=== PATIENT | male | born 1955 | race African-American/Black ===

== ENCOUNTER 2019-02-11 06:55 | Inpatient (IN) | payer BC ==
[2019-02-11 07:17] LABS: AADO2 Arterial 30.1 mmHg (7.0-24.0); Arterial Base Excess -3.6 mmol/L (-3.0-3); Arterial Blood Gas Oxygen Sat 98.7 mmHG (95.0-98.0); Arterial COHb 0.5 % (0.0-3.0); Arterial Fraction of Oxyhgb 97.5 % (93.0-99.0); Arterial HCO3 20.2 mmol/L (22.0-26.0); Arterial MetHb 0.7 % (0.0-1.5); Arterial pCO2 28.5 mmhg (35-45); MODE NASAL CANNULA; Site LB
[2019-02-11] MEDS: SOD CHLORIDE 0.9% 0 ML IV (07:20)
[2019-02-11] MEDS: SOD CHLORIDE 0.9% 2,450 ML IV (07:43)
[2019-02-11] MEDS: CEFEPIME 2GM/50 ML (PMX) 50 ML IVPB ×3 (07:43→22:44)
[2019-02-11 07:52] LABS: ADD MAN DIFF? NO
[2019-02-11 08:02] LABS: WHITE BLOOD COUNT 17.9 10^3/ul (4.8-10.8)
[2019-02-11 08:02] LABS: ABNORMAL IP MESSAGE 1; BASOPHILS % 0.1 % (0.0-2.0); EOSINOPHILS % 0.1 % (0.0-7.0); HEMATOCRIT 12.5 % (42.0-52.0); LYMPHOCYTES # 2.3 10^3/ul (0.8-2.9); LYMPHOCYTES % 12.9 % (15.0-51.0); MEAN CORPUSCULAR HEMOGLOBIN 29.1 pg (29.0-33.0); MEAN CORPUSCULAR HGB CONC 29.6 g/dl (32.0-37.0); MEAN CORPUSCULAR VOLUME 98.4 fl (82.0-101.0); MEAN PLATELET VOLUME 12.1 fl (7.4-10.4); MONOCYTE # 1.7 10^3/ul (0.3-0.9); MONOCYTES % 9.3 % (0.0-11.0); NEUTROPHIL # 13.1 10^3/ul (1.6-7.5); NEUTROPHILS % 73.3 % (39.0-77.0); NUCLEATED RED BLOOD CELLS # 0.8 10^3/ul (0.0-0.0); NUCLEATED RED BLOOD CELLS% 4.4 /100WBC (0.0-0.0); PLATELET COUNT 177 10^3/UL (140-415); POSITIVE DIFF @See below; RED BLOOD COUNT 1.27 10^6/ul (4.70-6.10); RED CELL DISTRIBUTION WIDTH 16.6 % (11.5-14.5)
[2019-02-11 08:04] LABS: HEMOGLOBIN 3.7 g/dl (14.0-18.0)
[2019-02-11 08:19] LABS: ALANINE AMINOTRANSFERASE 18 IU/L (13-69); ALBUMIN 2.8 g/dl (3.3-4.9); ALKALINE PHOSPHATASE 57 IU/L (42-121); ANION GAP 12 (5-13); ASPARTATE AMINO TRANSFERASE 14 IU/L (15-46); BILIRUBIN,INDIRECT 0.3 mg/dl (0-1.1); BILIRUBIN,TOTAL 0.3 mg/dl (0.2-1.3); BLOOD UREA NITROGEN 72 mg/dl (7-20); CALCIUM 8.7 mg/dl (8.4-10.2); CARBON DIOXIDE 19 mmol/L (21-31); CHLORIDE 106 mmol/L (97-110); CREATININE 1.19 mg/dl (0.61-1.24); Estimated GFR > 60 mL/min (>60); SODIUM 137 mmol/L (135-144); TOTAL PROTEIN 4.8 g/dl (6.1-8.1)
[2019-02-11 08:21] LABS: ACETAMINOPHEN < 10.0 ug/ml (10.0-30.0); ETHANOL < 10.0 mg/dl (0-0); GLUCOSE 521 mg/dl (70-220); SALICYLATE < 1.0 mg/dl (5.0-30.0)
[2019-02-11 08:24] LABS: INR 2.03; POTASSIUM 5.2 mmol/L (3.5-5.1); PT RATIO 1.8
[2019-02-11 08:25] LABS: PARTIAL THROMBOPLASTIN TIME 21.8 Sec (23.0-35.0)
[2019-02-11 08:28] LABS: TROPONIN-I < 0.012 ng/ml (0.000-0.120)
[2019-02-11] MEDS: VANCOMYCIN 1 GM (PMX) 250 ML IVPB (08:47)
[2019-02-11] MEDS: PANTOPRAZOLE IV 80 MG in SOD CHLORIDE 0.9% 100 ML IVPB (08:47)
[2019-02-11 09:16] LABS: LACTIC ACID 5.3 mmol/L (0.5-2.0)
[2019-02-11] MEDS: ACETAMINOPHEN 650 MG SUPP PR (09:18)
[2019-02-11] MEDS: ACCU-CHEK XX ×13 (09:26→23:33)
[2019-02-11] MEDS: INSULIN LISPRO 100 UNIT/ML VIAL SC (09:26)
[2019-02-11 10:19] LABS: ADD UMIC NO; UR ASCORBIC ACID NEGATIVE (NEGATIVE); UR BILIRUBIN (Dip) NEGATIVE (NEGATIVE); UR BLOOD (Dip) NEGATIVE (NEGATIVE); UR CLARITY CLEAR (CLEAR); UR COLOR STRAW (YELLOW); UR GLUCOSE (Dip) 3+ mg/dL (NEGATIVE); UR KETONES (Dip) TRACE mg/dL (NEGATIVE); UR LEUKOCYTE ESTERASE (Dip) NEGATIVE Leu/ul (NEGATIVE); UR NITRITE (Dip) NEGATIVE (NEGATIVE); UR SPECIFIC GRAVITY (Dip) 1.014 (1.003-1.030); UR TOTAL PROTEIN (Dip) NEGATIVE (NEGATIVE); UR UROBILINOGEN (Dip) NEGATIVE (NEGATIVE)
[2019-02-11 10:52] LABS: AMPHETAMINE/METHAMPHETAMINE Negative (NEGATIVE); BARBITURATES Negative (NEGATIVE); BENZODIAZEPINES Negative (NEGATIVE); CANNABINOIDS Negative (NEGATIVE); COCAINE Negative (NEGATIVE); OPIATES Negative (NEGATIVE)
[2019-02-11] MEDS ORDERED: DEXTROSE 50% 50 ML SYRINGE IV ×2 (12:30)
[2019-02-11] MEDS ORDERED: HYDROCODONE/APAP (5/325) TAB PO (12:30)
[2019-02-11] MEDS ORDERED: ONDANSETRON 4 MG INJ IV (12:30)
[2019-02-11] MEDS: LIDOCAINE 1% (MPF) 5 ML VIAL SC (12:30)
[2019-02-11] MEDS ORDERED: NITROGLYCERIN (SL) 0.4 MG TAB SL (12:30)
[2019-02-11] MEDS ORDERED: ALBUTEROL/IPRATROPIUM (NEB) 3 ML AMP HHN (12:30)
[2019-02-11] MEDS ORDERED: NACL 0.9% 3 ML SYG IV (12:30)
[2019-02-11] MEDS ORDERED: MAGNESIUM HYDROXIDE 30ML CUP PO (12:30)
[2019-02-11] MEDS ORDERED: VANCOMYCIN IV PER PHARMACY XX (12:30)
[2019-02-11] MEDS ORDERED: hydrALAzine 20 MG INJ IV (12:30)
[2019-02-11] MEDS: SOD CHLORIDE 0.9% 1,000 ML IV ×2 (13:25→22:44)
[2019-02-11] MEDS: INSULIN HUMAN REGULAR 100 UNIT in SOD CHLORIDE 0.9% 99 ML IV ×2 (13:31→19:31)
[2019-02-11 14:08] LABS: LACTIC ACID 4.9 mmol/L (0.5-2.0)
[2019-02-11 14:17] LABS: FREE T4 (FREE THYROXINE) 1.15 ng/dl (0.78-2.44)
[2019-02-11] MEDS: SUCRALFATE (100 MG/ML) 10ML CUP PO (14:32)
[2019-02-11 14:35] LABS: IMMEDIATE SPIN CROSSMATCH 1
[2019-02-11] MEDS ORDERED: SUCRALFATE (100 MG/ML) 10ML CUP PO (15:00)
[2019-02-11 15:50] LABS: IMMEDIATE SPIN CROSSMATCH 1 4
[2019-02-11] MEDS: VANCOMYCIN 500 MG (PMX) 100 ML IVPB (17:20)
[2019-02-11] MEDS: PANTOPRAZOLE IV 80 MG in SOD CHLORIDE 0.9% 100 ML IV ×2 (17:22→22:44)
[2019-02-11 19:03] LABS: HEMOGLOBIN 9.4 g/dl (14.0-18.0)
[2019-02-12] MEDS: ACCU-CHEK XX ×10 (00:30→09:52)
[2019-02-12] MEDS: VANCOMYCIN 1 GM 250 ML IVPB ×2 (01:38→14:09)
[2019-02-12 05:13] LABS: ADD MAN DIFF? NO
[2019-02-12 05:20] LABS: WHITE BLOOD COUNT 18.2 10^3/ul (4.8-10.8)
[2019-02-12 05:20] LABS: ABNORMAL IP MESSAGE 1; BASOPHIL # 0.1 10^3/ul (0.0-0.1); BASOPHILS % 0.4 % (0.0-2.0); EOSINOPHILS % 0.1 % (0.0-7.0); HEMATOCRIT 27.1 % (42.0-52.0); HEMOGLOBIN 8.9 g/dl (14.0-18.0); LYMPHOCYTES # 2.1 10^3/ul (0.8-2.9); LYMPHOCYTES % 11.6 % (15.0-51.0); MEAN CORPUSCULAR HEMOGLOBIN 28.3 pg (29.0-33.0); MEAN CORPUSCULAR HGB CONC 32.8 g/dl (32.0-37.0); MEAN CORPUSCULAR VOLUME 86.3 fl (82.0-101.0); MEAN PLATELET VOLUME 11.4 fl (7.4-10.4); MONOCYTE # 1.8 10^3/ul (0.3-0.9); MONOCYTES % 9.8 % (0.0-11.0); NEUTROPHIL # 13.2 10^3/ul (1.6-7.5); NEUTROPHILS % 72.5 % (39.0-77.0); NUCLEATED RED BLOOD CELLS # 1.1 10^3/ul (0.0-0.0); NUCLEATED RED BLOOD CELLS% 5.9 /100WBC (0.0-0.0); PLATELET COUNT 137 10^3/UL (140-415); POSITIVE DIFF @See below; RED BLOOD COUNT 3.14 10^6/ul (4.70-6.10); RED CELL DISTRIBUTION WIDTH 16.6 % (11.5-14.5)
[2019-02-12] MEDS: CEFEPIME 2GM/50 ML (PMX) 50 ML IVPB ×3 (05:24→21:54)
[2019-02-12 05:39] LABS: PROTIME 15.3 Sec (11.9-14.9); PT RATIO 1.2
[2019-02-12 05:40] LABS: CHOL/HDL RATIO 4.6 RATIO; HDL CHOLESTEROL 18 mg/dl (30-78); LDL CHOLESTEROL,CALCULATED 40 mg/dl; TRIGLYCERIDES 124 mg/dl (0-149)
[2019-02-12 05:40] LABS: CHOLESTEROL 83 mg/dl (100-200)
[2019-02-12 07:13] LABS: HEMOGLOBIN A1C 5.8 % (0-5.9)
[2019-02-12 07:47] LABS: ANION GAP 8 (5-13); BLOOD UREA NITROGEN 34 mg/dl (7-20); CALCIUM 8.6 mg/dl (8.4-10.2); CARBON DIOXIDE 23 mmol/L (21-31); CHLORIDE 118 mmol/L (97-110); CREATININE 0.85 mg/dl (0.61-1.24); Estimated GFR > 60 mL/min (>60); GLUCOSE 118 mg/dl (70-220); MAGNESIUM 2.1 mg/dl (1.7-2.5); PHOSPHORUS 2.1 mg/dl (2.5-4.9); POTASSIUM 3.4 mmol/L (3.5-5.1); SODIUM 149 mmol/L (135-144)
[2019-02-12] MEDS: PANTOPRAZOLE IV 80 MG in SOD CHLORIDE 0.9% 100 ML IV (08:14)
[2019-02-12] MEDS: SOD CHLORIDE 0.9% 1,000 ML IV (08:14)
[2019-02-12] MEDS: SOD CHLORIDE 0.45% 1,000 ML IV ×2 (10:14→23:20)
[2019-02-12] MEDS ORDERED: GLUCOSE GEL 15 GRAM TUBE PO ×2 (10:30)
[2019-02-12] MEDS ORDERED: GLUCOSE GEL 15 GRAM TUBE BUCCAL (10:30)
[2019-02-12] MEDS ORDERED: DEXTROSE 50% 50 ML SYRINGE IV ×2 (10:30)
[2019-02-12] MEDS ORDERED: GLUCAGON 1 MG INJ IM (10:30)
[2019-02-12] MEDS: INSULIN ASPART [NOVOLOG] 3 ML PEN SC ×3 (12:40→20:22)
[2019-02-12] MEDS: PANTOPRAZOLE (EC) 40 MG TAB PO (18:00)
[2019-02-12] MEDS: LORAZEPAM 2 MG INJ IV (20:37)
[2019-02-13] MEDS: VANCOMYCIN 1 GM 250 ML IVPB (02:00)
[2019-02-13] MEDS: ACCU-CHEK XX (02:00)
[2019-02-13] MEDS: LORAZEPAM 2 MG INJ IV (02:34)
[2019-02-13] MEDS: INSULIN ASPART [NOVOLOG] 3 ML PEN SC ×6 (02:50→21:53)
[2019-02-13 04:40] LABS: VANCOMYCIN,TROUGH 9.4 ug/ml (10.0-20.0)
[2019-02-13 05:10] LABS: ADD MAN DIFF? NO
[2019-02-13 05:15] LABS: WHITE BLOOD COUNT 10.8 10^3/ul (4.8-10.8)
[2019-02-13 05:16] LABS: BASOPHIL # 0.1 10^3/ul (0.0-0.1); BASOPHILS % 0.6 % (0.0-2.0); EOSINOPHILS # 0.1 10^3/ul (0.0-0.5); HEMATOCRIT 27.3 % (42.0-52.0); HEMOGLOBIN 8.7 g/dl (14.0-18.0); LYMPHOCYTES # 1.7 10^3/ul (0.8-2.9); LYMPHOCYTES % 15.5 % (15.0-51.0); MEAN CORPUSCULAR HEMOGLOBIN 27.7 pg (29.0-33.0); MEAN CORPUSCULAR HGB CONC 31.9 g/dl (32.0-37.0); MEAN CORPUSCULAR VOLUME 86.9 fl (82.0-101.0); MEAN PLATELET VOLUME 11.4 fl (7.4-10.4); MONOCYTE # 0.8 10^3/ul (0.3-0.9); MONOCYTES % 7.7 % (0.0-11.0); NEUTROPHIL # 7.9 10^3/ul (1.6-7.5); NEUTROPHILS % 72.8 % (39.0-77.0); NUCLEATED RED BLOOD CELLS # 0.2 10^3/ul (0.0-0.0); NUCLEATED RED BLOOD CELLS% 1.7 /100WBC (0.0-0.0); PLATELET COUNT 127 10^3/UL (140-415); RED BLOOD COUNT 3.14 10^6/ul (4.70-6.10); RED CELL DISTRIBUTION WIDTH 18.6 % (11.5-14.5)
[2019-02-13 06:02] LABS: ANION GAP 7 (5-13); BLOOD UREA NITROGEN 14 mg/dl (7-20); CALCIUM 8.3 mg/dl (8.4-10.2); CARBON DIOXIDE 26 mmol/L (21-31); CHLORIDE 111 mmol/L (97-110); CREATININE 0.67 mg/dl (0.61-1.24); Estimated GFR > 60 mL/min (>60); GLUCOSE 182 mg/dl (70-220); POTASSIUM 3.2 mmol/L (3.5-5.1); SODIUM 144 mmol/L (135-144)
[2019-02-13] MEDS: CEFEPIME 2GM/50 ML (PMX) 50 ML IVPB ×3 (06:38→21:55)
[2019-02-13] MEDS: PANTOPRAZOLE (EC) 40 MG TAB PO (06:38)
[2019-02-13] MEDS: INSULIN GLARGINE [LANTus] (100 UNITS/ML) SYG SC (08:06)
[2019-02-13] MEDS: DEXTROSE 5%-0.45% NACL 1,000 ML IV (08:55)
[2019-02-13] MEDS: POTASSIUM CHLORIDE 50 ML IVPB ×2 (08:55→10:53)
[2019-02-13] MEDS: VANCOMYCIN 1.25 GM/NS 250 ML 250 ML IVPB (13:56)
[2019-02-13] MEDS: PANTOPRAZOLE 40 MG INJ IV (17:38)
[2019-02-13] MEDS: MIDAZOLAM 1 MG/ML 2 ML INJ (19:30)
[2019-02-13] MEDS: LIDOCAINE 4% SOLUTION 50 ML BTL (19:30)
[2019-02-13] MEDS: PROPOFOL 20 ML (19:30)
[2019-02-13] MEDS: LIDOCAINE 2% (SDV) 5 ML INJ (19:30)
[2019-02-13] MEDS: FENTAnyl 50 MCG/ML VIAL (19:30)
[2019-02-14] MEDS: DEXTROSE 5%-0.45% NACL 1,000 ML IV ×3 (01:07→17:07)
[2019-02-14] MEDS: INSULIN ASPART [NOVOLOG] 3 ML PEN SC ×5 (01:22→20:43)
[2019-02-14] MEDS: ACCU-CHEK XX (02:00)
[2019-02-14] MEDS: LORAZEPAM 2 MG INJ IV ×2 (02:23→19:48)
[2019-02-14] MEDS: VANCOMYCIN 1.25 GM/NS 250 ML 250 ML IVPB ×2 (03:26→15:15)
[2019-02-14] MEDS: PANTOPRAZOLE 40 MG INJ IV ×2 (05:29→17:06)
[2019-02-14] MEDS: CEFEPIME 2GM/50 ML (PMX) 50 ML IVPB ×3 (05:30→21:34)
[2019-02-14 06:33] LABS: ADD MAN DIFF? NO
[2019-02-14 06:40] LABS: BASOPHILS % 0.4 % (0.0-2.0); EOSINOPHILS # 0.3 10^3/ul (0.0-0.5); EOSINOPHILS % 3.4 % (0.0-7.0); HEMATOCRIT 25.5 % (42.0-52.0); HEMOGLOBIN 8.1 g/dl (14.0-18.0); LYMPHOCYTES # 1.5 10^3/ul (0.8-2.9); LYMPHOCYTES % 17.2 % (15.0-51.0); MEAN CORPUSCULAR HEMOGLOBIN 27.8 pg (29.0-33.0); MEAN CORPUSCULAR HGB CONC 31.8 g/dl (32.0-37.0); MEAN CORPUSCULAR VOLUME 87.6 fl (82.0-101.0); MEAN PLATELET VOLUME 11.1 fl (7.4-10.4); MONOCYTE # 0.7 10^3/ul (0.3-0.9); NEUTROPHIL # 6.3 10^3/ul (1.6-7.5); NEUTROPHILS % 70.6 % (39.0-77.0); NUCLEATED RED BLOOD CELLS # 0.1 10^3/ul (0.0-0.0); NUCLEATED RED BLOOD CELLS% 0.8 /100WBC (0.0-0.0); PLATELET COUNT 125 10^3/UL (140-415); RED BLOOD COUNT 2.91 10^6/ul (4.70-6.10); RED CELL DISTRIBUTION WIDTH 17.5 % (11.5-14.5)
[2019-02-14 07:39] LABS: ANION GAP 8 (5-13); BLOOD UREA NITROGEN 8 mg/dl (7-20); CALCIUM 8.1 mg/dl (8.4-10.2); CARBON DIOXIDE 26 mmol/L (21-31); CHLORIDE 107 mmol/L (97-110); CREATININE 0.64 mg/dl (0.61-1.24); Estimated GFR > 60 mL/min (>60); GLUCOSE 157 mg/dl (70-220); SODIUM 141 mmol/L (135-144)
[2019-02-14 07:44] LABS: MAGNESIUM 1.7 mg/dl (1.7-2.5)
[2019-02-14 07:44] LABS: PHOSPHORUS 2.5 mg/dl (2.5-4.9)
[2019-02-14] MEDS: INSULIN GLARGINE [LANTus] (100 UNITS/ML) SYG SC (08:48)
[2019-02-14] MEDS: POTASSIUM CHLORIDE (SR) 20 MEQ TAB PO (12:04)
[2019-02-15] MEDS: ACCU-CHEK XX (02:39)
[2019-02-15] MEDS: VANCOMYCIN 1.25 GM/NS 250 ML 250 ML IVPB ×2 (02:39→15:26)
[2019-02-15] MEDS: CEFEPIME 2GM/50 ML (PMX) 50 ML IVPB ×2 (05:17→15:13)
[2019-02-15] MEDS: PANTOPRAZOLE 40 MG INJ IV ×2 (05:17→17:23)
[2019-02-15] MEDS: INSULIN ASPART [NOVOLOG] 3 ML PEN SC ×5 (07:55→20:33)
[2019-02-15] MEDS: INSULIN GLARGINE [LANTus] (100 UNITS/ML) SYG SC (07:56)
[2019-02-15 08:25] LABS: ADD MAN DIFF? NO
[2019-02-15 08:31] LABS: BASOPHILS % 0.4 % (0.0-2.0); EOSINOPHILS # 0.4 10^3/ul (0.0-0.5); EOSINOPHILS % 4.2 % (0.0-7.0); HEMATOCRIT 26.5 % (42.0-52.0); HEMOGLOBIN 8.5 g/dl (14.0-18.0); LYMPHOCYTES # 1.3 10^3/ul (0.8-2.9); LYMPHOCYTES % 15.5 % (15.0-51.0); MEAN CORPUSCULAR HEMOGLOBIN 27.5 pg (29.0-33.0); MEAN CORPUSCULAR HGB CONC 32.1 g/dl (32.0-37.0); MEAN CORPUSCULAR VOLUME 85.8 fl (82.0-101.0); MEAN PLATELET VOLUME 11.3 fl (7.4-10.4); MONOCYTE # 0.5 10^3/ul (0.3-0.9); MONOCYTES % 6.5 % (0.0-11.0); NEUTROPHILS % 72.9 % (39.0-77.0); NUCLEATED RED BLOOD CELLS% 0.4 /100WBC (0.0-0.0); PLATELET COUNT 153 10^3/UL (140-415); RED BLOOD COUNT 3.09 10^6/ul (4.70-6.10); RED CELL DISTRIBUTION WIDTH 16.7 % (11.5-14.5)
[2019-02-15 08:31] LABS: WHITE BLOOD COUNT 8.3 10^3/ul (4.8-10.8)
[2019-02-15] MEDS: DEXTROSE 5%-0.45% NACL 1,000 ML IV ×2 (08:56→23:12)
[2019-02-15 08:59] LABS: ANION GAP 10 (5-13); BLOOD UREA NITROGEN 5 mg/dl (7-20); CALCIUM 8.4 mg/dl (8.4-10.2); CARBON DIOXIDE 24 mmol/L (21-31); CHLORIDE 106 mmol/L (97-110); CREATININE 0.62 mg/dl (0.61-1.24); Estimated GFR > 60 mL/min (>60); GLUCOSE 185 mg/dl (70-220); POTASSIUM 3.4 mmol/L (3.5-5.1); SODIUM 140 mmol/L (135-144)
[2019-02-15] MEDS: LORAZEPAM 2 MG INJ IV ×2 (09:25→15:40)
[2019-02-15 13:47] LABS: VANCOMYCIN,TROUGH 14.4 ug/ml (10.0-20.0)
[2019-02-15] MEDS: POLYETHYLENE GLYCOL 17 GM PACKET PO (15:13)
[2019-02-15] MEDS: POTASSIUM CHLORIDE 20 MEQ POWDER FOR ORAL SOLN PO (17:21)
[2019-02-15] MEDS: METOPROLOL (XL) 25 MG TAB PO (17:22)
[2019-02-15] MEDS: THIAMINE 100 MG TAB PO (17:22)
[2019-02-15] MEDS ORDERED: INSULIN LISPRO 100 UNIT/ML VIAL SC ×2 (17:25→21:00)
[2019-02-15] MEDS: LACTOBACILLUS RHAMNOSUS CAP PO (20:28)
[2019-02-15] MEDS: BUSPIRONE 5 MG TAB PO (20:28)
[2019-02-16] MEDS: ACCU-CHEK XX (01:39)
[2019-02-16 05:01] LABS: ADD MAN DIFF? NO; HAAIG REFLEX REFLEX FILED
[2019-02-16 05:05] LABS: BASOPHILS % 0.3 % (0.0-2.0); EOSINOPHILS # 0.4 10^3/ul (0.0-0.5); EOSINOPHILS % 4.2 % (0.0-7.0); HEMOGLOBIN 8.2 g/dl (14.0-18.0); LYMPHOCYTES # 1.4 10^3/ul (0.8-2.9); MEAN CORPUSCULAR HEMOGLOBIN 27.5 pg (29.0-33.0); MEAN CORPUSCULAR HGB CONC 31.5 g/dl (32.0-37.0); MEAN CORPUSCULAR VOLUME 87.2 fl (82.0-101.0); MEAN PLATELET VOLUME 11.4 fl (7.4-10.4); MONOCYTE # 0.6 10^3/ul (0.3-0.9); MONOCYTES % 6.5 % (0.0-11.0); NEUTROPHIL # 7.2 10^3/ul (1.6-7.5); NEUTROPHILS % 74.3 % (39.0-77.0); NUCLEATED RED BLOOD CELLS% 0.3 /100WBC (0.0-0.0); PLATELET COUNT 169 10^3/UL (140-415); POSITIVE DIFF @See below; RED BLOOD COUNT 2.98 10^6/ul (4.70-6.10); RED CELL DISTRIBUTION WIDTH 16.5 % (11.5-14.5)
[2019-02-16 05:05] LABS: WHITE BLOOD COUNT 9.7 10^3/ul (4.8-10.8)
[2019-02-16] MEDS: PANTOPRAZOLE 40 MG INJ IV (05:22)
[2019-02-16 05:29] LABS: INR 1.18; PROTIME 15.1 Sec (11.9-14.9); PT RATIO 1.2
[2019-02-16 05:33] LABS: IRON 23 ug/dl (35-150)
[2019-02-16 05:35] LABS: AMMONIA < 9 umol/l (9-30)
[2019-02-16 05:38] LABS: MAGNESIUM 1.8 mg/dl (1.7-2.5)
[2019-02-16 05:38] LABS: PHOSPHORUS 2.5 mg/dl (2.5-4.9)
[2019-02-16 05:39] LABS: CHOLESTEROL 103 mg/dl (100-200)
[2019-02-16 05:39] LABS: CHOL/HDL RATIO 4.2 RATIO; HDL CHOLESTEROL 24 mg/dl (30-78); LDL CHOLESTEROL,CALCULATED 57 mg/dl; TRIGLYCERIDES 109 mg/dl (0-149)
[2019-02-16 05:42] LABS: % IRON SATURATION 7 % SAT (22-52); TOTAL IRON BINDING CAPACITY 313 ug/dl (241-421)
[2019-02-16 05:45] LABS: ALANINE AMINOTRANSFERASE 31 IU/L (13-69); ALBUMIN 3.4 g/dl (3.3-4.9); ALBUMIN/GLOBULIN RATIO 1.13; ALKALINE PHOSPHATASE 82 IU/L (42-121); ANION GAP 8 (5-13); ASPARTATE AMINO TRANSFERASE 16 IU/L (15-46); BILIRUBIN,INDIRECT 0.5 mg/dl (0-1.1); BILIRUBIN,TOTAL 0.5 mg/dl (0.2-1.3); BLOOD UREA NITROGEN 4 mg/dl (7-20); CALCIUM 8.6 mg/dl (8.4-10.2); CARBON DIOXIDE 27 mmol/L (21-31); CHLORIDE 108 mmol/L (97-110); CREATININE 0.61 mg/dl (0.61-1.24); Estimated GFR > 60 mL/min (>60); GLUCOSE 190 mg/dl (70-220); POTASSIUM 3.7 mmol/L (3.5-5.1); SODIUM 143 mmol/L (135-144); TOTAL PROTEIN 6.4 g/dl (6.1-8.1)
[2019-02-16 06:10] LABS: HEPATITIS B SURFACE ANTIGEN NEGATIVE (NEGATIVE)
[2019-02-16 06:20] LABS: HEPATITIS B CORE ANTIBODY NEGATIVE (NEGATIVE)
[2019-02-16 06:50] LABS: HEPATITIS C VIRAL ANTIBODY REACTIVE (NEGATIVE)
[2019-02-16] MEDS: INSULIN ASPART [NOVOLOG] 3 ML PEN SC ×7 (09:41→21:00)
[2019-02-16] MEDS: BUSPIRONE 5 MG TAB PO ×2 (09:43→21:59)
[2019-02-16] MEDS: THIAMINE 100 MG TAB PO (09:43)
[2019-02-16] MEDS: POLYETHYLENE GLYCOL 17 GM PACKET PO (09:43)
[2019-02-16] MEDS: ALTEPLASE (CATHFLO) 2 MG INJ CATHETER (09:43)
[2019-02-16] MEDS: LACTOBACILLUS RHAMNOSUS CAP PO ×2 (09:43→21:59)
[2019-02-16] MEDS: LISINOPRIL 5 MG TAB PO (09:46)
[2019-02-16] MEDS: METOPROLOL (XL) 25 MG TAB PO (09:48)
[2019-02-16] MEDS: INSULIN GLARGINE [LANTus] (100 UNITS/ML) SYG SC (09:48)
[2019-02-16] MEDS: ACETAMINOPHEN 325 MG TAB PO (16:14)
[2019-02-16] MEDS: PANTOPRAZOLE (EC) 40 MG TAB PO (17:09)
[2019-02-17] MEDS: ACCU-CHEK XX (02:00)
[2019-02-17] MEDS: DOCUSATE SODIUM 100 MG CAP PO (05:12)
[2019-02-17] MEDS: PANTOPRAZOLE (EC) 40 MG TAB PO ×2 (05:12→17:40)
[2019-02-17 05:34] LABS: ADD MAN DIFF? NO
[2019-02-17 05:38] LABS: BASOPHILS % 0.4 % (0.0-2.0); EOSINOPHILS # 0.4 10^3/ul (0.0-0.5); EOSINOPHILS % 4.8 % (0.0-7.0); HEMATOCRIT 27.4 % (42.0-52.0); HEMOGLOBIN 8.3 g/dl (14.0-18.0); LYMPHOCYTES # 1.4 10^3/ul (0.8-2.9); LYMPHOCYTES % 15.8 % (15.0-51.0); MEAN CORPUSCULAR HEMOGLOBIN 26.7 pg (29.0-33.0); MEAN CORPUSCULAR HGB CONC 30.3 g/dl (32.0-37.0); MEAN CORPUSCULAR VOLUME 88.1 fl (82.0-101.0); MEAN PLATELET VOLUME 11.2 fl (7.4-10.4); MONOCYTE # 0.6 10^3/ul (0.3-0.9); MONOCYTES % 6.8 % (0.0-11.0); NEUTROPHIL # 6.1 10^3/ul (1.6-7.5); NEUTROPHILS % 71.7 % (39.0-77.0); NUCLEATED RED BLOOD CELLS% 0.2 /100WBC (0.0-0.0); PLATELET COUNT 206 10^3/UL (140-415); RED BLOOD COUNT 3.11 10^6/ul (4.70-6.10); RED CELL DISTRIBUTION WIDTH 16.5 % (11.5-14.5)
[2019-02-17 05:38] LABS: WHITE BLOOD COUNT 8.5 10^3/ul (4.8-10.8)
[2019-02-17 06:11] LABS: ANION GAP 6 (5-13); BLOOD UREA NITROGEN 5 mg/dl (7-20); CALCIUM 8.9 mg/dl (8.4-10.2); CARBON DIOXIDE 30 mmol/L (21-31); CHLORIDE 104 mmol/L (97-110); CREATININE 0.67 mg/dl (0.61-1.24); Estimated GFR > 60 mL/min (>60); GLUCOSE 188 mg/dl (70-220); POTASSIUM 3.4 mmol/L (3.5-5.1); SODIUM 140 mmol/L (135-144)
[2019-02-17] MEDS: LACTOBACILLUS RHAMNOSUS CAP PO ×2 (08:36→20:38)
[2019-02-17] MEDS: THIAMINE 100 MG TAB PO (08:36)
[2019-02-17] MEDS: LISINOPRIL 5 MG TAB PO (08:37)
[2019-02-17] MEDS: METOPROLOL (XL) 25 MG TAB PO (08:38)
[2019-02-17] MEDS: BUSPIRONE 5 MG TAB PO ×2 (08:39→20:39)
[2019-02-17] MEDS: INSULIN ASPART [NOVOLOG] 3 ML PEN SC ×7 (08:40→20:46)
[2019-02-17] MEDS: INSULIN GLARGINE [LANTus] (100 UNITS/ML) SYG SC (08:41)
[2019-02-18] MEDS: ACCU-CHEK XX (02:00)
[2019-02-18 05:17] LABS: ADD MAN DIFF? NO
[2019-02-18 05:20] LABS: BASOPHILS % 0.4 % (0.0-2.0); EOSINOPHILS # 0.3 10^3/ul (0.0-0.5); EOSINOPHILS % 2.9 % (0.0-7.0); HEMATOCRIT 27.6 % (42.0-52.0); HEMOGLOBIN 8.6 g/dl (14.0-18.0); LYMPHOCYTES # 1.4 10^3/ul (0.8-2.9); LYMPHOCYTES % 12.9 % (15.0-51.0); MEAN CORPUSCULAR HEMOGLOBIN 27.1 pg (29.0-33.0); MEAN CORPUSCULAR HGB CONC 31.2 g/dl (32.0-37.0); MEAN CORPUSCULAR VOLUME 87.1 fl (82.0-101.0); MEAN PLATELET VOLUME 11.3 fl (7.4-10.4); MONOCYTE # 0.7 10^3/ul (0.3-0.9); MONOCYTES % 6.2 % (0.0-11.0); NEUTROPHIL # 8.5 10^3/ul (1.6-7.5); NEUTROPHILS % 77.1 % (39.0-77.0); NUCLEATED RED BLOOD CELLS% 0.3 /100WBC (0.0-0.0); PLATELET COUNT 264 10^3/UL (140-415); RED BLOOD COUNT 3.17 10^6/ul (4.70-6.10); RED CELL DISTRIBUTION WIDTH 15.9 % (11.5-14.5)
[2019-02-18] MEDS: PANTOPRAZOLE (EC) 40 MG TAB PO ×2 (05:20→17:19)
[2019-02-18 05:50] LABS: ANION GAP 5 (5-13); BLOOD UREA NITROGEN 8 mg/dl (7-20); CALCIUM 8.9 mg/dl (8.4-10.2); CARBON DIOXIDE 32 mmol/L (21-31); CHLORIDE 102 mmol/L (97-110); CREATININE 0.66 mg/dl (0.61-1.24); Estimated GFR > 60 mL/min (>60); GLUCOSE 172 mg/dl (70-220); POTASSIUM 3.2 mmol/L (3.5-5.1); SODIUM 139 mmol/L (135-144)
[2019-02-18] MEDS: LACTOBACILLUS RHAMNOSUS CAP PO ×2 (08:39→20:34)
[2019-02-18] MEDS: BUSPIRONE 5 MG TAB PO ×2 (08:39→20:34)
[2019-02-18] MEDS: METOPROLOL (XL) 25 MG TAB PO (08:39)
[2019-02-18] MEDS: LISINOPRIL 5 MG TAB PO (08:40)
[2019-02-18] MEDS: THIAMINE 100 MG TAB PO (08:40)
[2019-02-18] MEDS: INSULIN ASPART [NOVOLOG] 3 ML PEN SC ×7 (08:43→20:34)
[2019-02-18] MEDS: INSULIN GLARGINE [LANTus] (100 UNITS/ML) SYG SC (08:47)
[2019-02-18] MEDS: POTASSIUM CHLORIDE 20 MEQ POWDER FOR ORAL SOLN PO (12:48)
[2019-02-18] MEDS: morphine 2 MG INJ IV (22:09)
[2019-02-19] MEDS: ACCU-CHEK XX (01:47)
[2019-02-19] MEDS: PANTOPRAZOLE (EC) 40 MG TAB PO ×2 (06:04→17:09)
[2019-02-19] MEDS: INSULIN GLARGINE [LANTus] (100 UNITS/ML) SYG SC (08:15)
[2019-02-19] MEDS: INSULIN ASPART [NOVOLOG] 3 ML PEN SC ×7 (08:16→20:44)
[2019-02-19] MEDS: BUSPIRONE 5 MG TAB PO ×2 (08:19→20:42)
[2019-02-19] MEDS: LACTOBACILLUS RHAMNOSUS CAP PO ×2 (08:19→20:42)
[2019-02-19] MEDS: LISINOPRIL 5 MG TAB PO (08:19)
[2019-02-19] MEDS: METOPROLOL (XL) 25 MG TAB PO (08:20)
[2019-02-19] MEDS: THIAMINE 100 MG TAB PO (08:20)
[2019-02-20] MEDS: LORAZEPAM 2 MG INJ IV ×2 (01:37→19:02)
[2019-02-20] MEDS: ACCU-CHEK XX (02:00)
[2019-02-20] MEDS: PANTOPRAZOLE (EC) 40 MG TAB PO ×2 (06:08→17:19)
[2019-02-20] MEDS: LACTOBACILLUS RHAMNOSUS CAP PO ×2 (08:36→20:42)
[2019-02-20] MEDS: BUSPIRONE 5 MG TAB PO ×2 (08:36→20:42)
[2019-02-20] MEDS: THIAMINE 100 MG TAB PO (08:37)
[2019-02-20] MEDS: LISINOPRIL 5 MG TAB PO (08:37)
[2019-02-20] MEDS: METOPROLOL (XL) 25 MG TAB PO (08:38)
[2019-02-20] MEDS: INSULIN GLARGINE [LANTus] (100 UNITS/ML) SYG SC (08:41)
[2019-02-20] MEDS: INSULIN ASPART [NOVOLOG] 3 ML PEN SC ×7 (08:42→20:42)
[2019-02-20] MEDS: DOCUSATE SODIUM 100 MG CAP PO (08:45)
== END 2019-02-20 21:15 | DRG 811 ==
LOC: MS3 02-20 02:55 → E/R 06:55 → TEL 02-13 11:18 → ICU 09:22
PROC: 0DJ08ZZ Inspection of Upper Intestinal Tract, Via Natural or Artificial Opening Endoscopic (ICD-10-PCS; principal; 2019-02-12 12:30)
PROC: 02HV33Z Insertion of Infusion Device into Superior Vena Cava, Percutaneous Approach (ICD-10-PCS; 2019-02-12 14:45)
PROC: B548ZZA Ultrasonography of Superior Vena Cava, Guidance (ICD-10-PCS; 2019-02-12 14:45)
PROC: 30233N1 Transfusion of Nonautologous Red Blood Cells into Peripheral Vein, Percutaneous Approach (ICD-10-PCS; 2019-02-12 14:45)
PROC: 30233K1 Transfusion of Nonautologous Frozen Plasma into Peripheral Vein, Percutaneous Approach (ICD-10-PCS; 2019-02-12 14:45)
DX: D50.0 Iron deficiency anemia secondary to blood loss (chronic) (principal); G92 Toxic encephalopathy; R57.8 Other shock; D68.9 Coagulation defect, unspecified; E87.2 Acidosis; K92.1 Melena; E46 Unspecified protein-calorie malnutrition; R65.10 Systemic inflammatory response syndrome (SIRS) of non-infectious origin without acute organ dysfunction; I69.354 Hemiplegia and hemiparesis following cerebral infarction affecting left non-dominant side; E11.65 Type 2 diabetes mellitus with hyperglycemia; K20.9 Esophagitis, unspecified; E86.0 Dehydration; I10 Essential (primary) hypertension; R62.7 Adult failure to thrive; Z68.27 Body mass index [BMI] 27.0-27.9, adult; R13.10 Dysphagia, unspecified; N40.0 Benign prostatic hyperplasia without lower urinary tract symptoms; F43.20 Adjustment disorder, unspecified
CPT/HCPCS: 36415; 36430; 36569; 36600; 70450; 71045; 73700; 74176; 76937; 80048; 80053; 80061; 80202; 80307; 81003; 82140; 82607; 82803; 82962; 83036; 83540; 83605; 83735; 84100; 84439; 84443; 84484; 85014; 85018; 85025; 85610; 85730; 86704; 86709; 86803; 86850; 86900; 86901; 86920; 87040-91; 87081; 87086; 87340; 87522; 92526; 92610; 93005; 93306; 96365; 96367; 96375; 97110; 97162; 97530; 99285-25